=== PATIENT | female | born 1990 | race Caucasian/White ===

== ENCOUNTER 2019-06-07 12:52 | Emergency (ER) | payer OTHER ==
[~2019-06-07] VITALS: Ht 154.9 cm; Wt 81.0 kg
[2019-06-07 13:43] VITALS: BP 139/90
[2019-06-07] MEDS ORDERED: ibuprofen tablet 400 MG TABLET PO ONE (15:05)
== END 2019-06-07 15:53 | disposition home or self-care (01) ==
LOC: ER 12:53
DX: M54.5 Low back pain (principal); V59.88XA Occupant (driver) (passenger) of pick-up truck or van injured in other specified transport accidents, initial encounter; Y93.89 Activity, other specified; Y92.413 State road as the place of occurrence of the external cause; Y99.9 Unspecified external cause status
CPT/HCPCS: 72100; 99283